=== PATIENT | female | born 1940 | race Caucasian/White ===

== ENCOUNTER → 2021-09-05 14:06 | Outpatient (CLI) | payer MEDICARE, SELFPAY | PROVIDERS: PCP Family Medicine; Referring Provider Dermatology MOHS-Micrographic Surgery; Visit Provider Nurse Practitioner Family | DX: T81.31XA Disruption of external operation (surgical) wound, not elsewhere classified, initial encounter (principal); S81.802A Unspecified open wound, left lower leg, initial encounter; I87.2 Venous insufficiency (chronic) (peripheral); L97.321 Non-pressure chronic ulcer of left ankle limited to breakdown of skin; R60.0 Localized edema; Z79.52 Long term (current) use of systemic steroids; Z85.828 Personal history of other malignant neoplasm of skin | CPT/HCPCS: 11042; 99203; 99213 ==

== ENCOUNTER → 2021-09-12 14:52 | Outpatient (CLI) | payer MEDICARE, SELFPAY | PROVIDERS: PCP Family Medicine; Referring Provider Dermatology MOHS-Micrographic Surgery; Visit Provider Nurse Practitioner Family | DX: T81.31XA Disruption of external operation (surgical) wound, not elsewhere classified, initial encounter (principal); S81.802A Unspecified open wound, left lower leg, initial encounter; I87.2 Venous insufficiency (chronic) (peripheral); L97.321 Non-pressure chronic ulcer of left ankle limited to breakdown of skin; R60.0 Localized edema; E27.40 Unspecified adrenocortical insufficiency; J45.909 Unspecified asthma, uncomplicated; Z79.52 Long term (current) use of systemic steroids | CPT/HCPCS: 11042; 97597 ==

== ENCOUNTER → 2021-09-19 13:18 | Outpatient (CLI) | payer MEDICARE, SELFPAY | PROVIDERS: PCP Family Medicine; Referring Provider Dermatology MOHS-Micrographic Surgery; Visit Provider Nurse Practitioner Family | DX: T81.31XA Disruption of external operation (surgical) wound, not elsewhere classified, initial encounter (principal); S81.802A Unspecified open wound, left lower leg, initial encounter; I87.2 Venous insufficiency (chronic) (peripheral); L97.321 Non-pressure chronic ulcer of left ankle limited to breakdown of skin; R60.0 Localized edema; E27.40 Unspecified adrenocortical insufficiency; J45.909 Unspecified asthma, uncomplicated; Z79.52 Long term (current) use of systemic steroids; Z85.828 Personal history of other malignant neoplasm of skin | CPT/HCPCS: 11042; 93922; 97597 ==

== ENCOUNTER → 2021-09-26 14:10 | Outpatient (CLI) | payer MEDICARE, SELFPAY | PROVIDERS: PCP Family Medicine; Referring Provider Dermatology MOHS-Micrographic Surgery; Visit Provider Nurse Practitioner Family | DX: T81.31XA Disruption of external operation (surgical) wound, not elsewhere classified, initial encounter (principal); S81.802A Unspecified open wound, left lower leg, initial encounter; I87.2 Venous insufficiency (chronic) (peripheral); L97.322 Non-pressure chronic ulcer of left ankle with fat layer exposed; R60.0 Localized edema; E27.40 Unspecified adrenocortical insufficiency; J45.909 Unspecified asthma, uncomplicated; Z79.52 Long term (current) use of systemic steroids; Z85.828 Personal history of other malignant neoplasm of skin | CPT/HCPCS: 97597 ==

== ENCOUNTER → 2021-10-03 13:43 | Outpatient (CLI) | payer MEDICARE, SELFPAY | PROVIDERS: PCP Family Medicine; Referring Provider Dermatology MOHS-Micrographic Surgery; Visit Provider Nurse Practitioner Family | DX: S81.802A Unspecified open wound, left lower leg, initial encounter (principal); T81.31XA Disruption of external operation (surgical) wound, not elsewhere classified, initial encounter; I87.2 Venous insufficiency (chronic) (peripheral); L97.322 Non-pressure chronic ulcer of left ankle with fat layer exposed; R60.0 Localized edema; E27.40 Unspecified adrenocortical insufficiency; J45.909 Unspecified asthma, uncomplicated; Z79.52 Long term (current) use of systemic steroids; Z85.828 Personal history of other malignant neoplasm of skin | CPT/HCPCS: 11042; 73590; 99213 ==

== ENCOUNTER → 2021-10-03 13:57 | Outpatient (CLI) | payer MEDICARE, SELFPAY ==
--- NOTE | 2021-10-03 | DI.RAD.S_ITS ---
PROCEDURE: XR TIBIA FIBULA LT 2V INDICATIONS: Unspecified open wound, left lower leg, initial encounter TECHNIQUE: 2 views of the tibia and fibula were acquired. COMPARISON: None. FINDINGS: Bones: No fractures or dislocations. No suspicious bony lesions. No erosive changes. Soft tissues: No suspicious soft tissue calcifications or masses. IMPRESSION: Although no bony erosions are identified, plain film radiography is relatively insensitive in the acute phases of osteomyelitis and may not demonstrate radiographic changes for 15 days. If acute osteomyelitis is of clinical concern, nuclear medicine regional bone scan or MRI is recommended. Dictated by: Quinten King [facility] Interpreted: Flavio Monsivais MD on 10/03/2021 at 14:23 Transcribed by: MARGIE on 10/03/2021 at 14:23 Approved by: Flavio Monsivais M.D. on 10/03/2021 at 16:31
== END ==
PROVIDERS: PCP Family Medicine; Referring Provider Nurse Practitioner Family; Visit Provider Nurse Practitioner Family
DX: S81.802A Unspecified open wound, left lower leg, initial encounter (principal)
CPT/HCPCS: 73590

== ENCOUNTER → 2021-10-10 11:55 | Outpatient (CLI) | payer MEDICARE, SELFPAY | PROVIDERS: PCP Family Medicine; Referring Provider Dermatology MOHS-Micrographic Surgery; Visit Provider Nurse Practitioner Family | DX: L08.9 Local infection of the skin and subcutaneous tissue, unspecified (principal); T81.31XA Disruption of external operation (surgical) wound, not elsewhere classified, initial encounter; S81.802A Unspecified open wound, left lower leg, initial encounter; R60.0 Localized edema; I87.2 Venous insufficiency (chronic) (peripheral); E27.40 Unspecified adrenocortical insufficiency; J45.909 Unspecified asthma, uncomplicated; Z79.52 Long term (current) use of systemic steroids; Z85.828 Personal history of other malignant neoplasm of skin | CPT/HCPCS: 15271; 36415; 85007; 85025; 85651; 86140; 87070; 87075; 87205; 99213; Q4195 ==

== ENCOUNTER → 2021-10-10 11:55 | Outpatient (CLI) | payer MEDICARE, SELFPAY ==
[2021-10-10 12:32] LABS: Hematocrit 44.5 % (36-46); Hemoglobin 14.8 g/dL (12.0-16.0); Mean Corpuscular HGB Conc 33.3 % (30-36); Mean Corpuscular Hemoglobin 29.2 PG (26-34); Mean Corpuscular Volume 87.8 fL (80-100); Platelet Count 506 X10^3/uL (150-400); Red Blood Cell Count 5.06 X10^6/uL (4.0-5.2); Red Cell Distribution Width 14.5 % (11.6-14.8); White Blood Cell Count 18.5 X10^3/uL (4.5-11.0)
[2021-10-10 12:35] LABS: Add Manual Diff / Slide Review YES
[2021-10-10 12:58] LABS: Neutrophils Absolute Manual 14615 /uL (3000-5900); Total Cells Counted 100
[2021-10-10 12:59] LABS: RBC Morphology Normal Morphology
[2021-10-10 13:12] LABS: C-Reactive Protein Quant < 0.5 mg/dL (<1.0); Erythrocyte Sedimentation Rate 1 MM/HR (0-20)
== END ==
PROVIDERS: PCP Family Medicine; Referring Provider Nurse Practitioner Family; Visit Provider Nurse Practitioner Family
DX: L08.9 Local infection of the skin and subcutaneous tissue, unspecified (principal)
CPT/HCPCS: 36415; 85007; 85025; 85651; 86140

== ENCOUNTER → 2021-10-17 11:21 | Outpatient (CLI) | payer MEDICARE, SELFPAY | PROVIDERS: PCP Family Medicine; Referring Provider Family Medicine; Visit Provider Nurse Practitioner Family | DX: T81.31XA Disruption of external operation (surgical) wound, not elsewhere classified, initial encounter (principal); S81.802A Unspecified open wound, left lower leg, initial encounter; I87.2 Venous insufficiency (chronic) (peripheral); R60.0 Localized edema; L08.9 Local infection of the skin and subcutaneous tissue, unspecified; E27.40 Unspecified adrenocortical insufficiency; J45.909 Unspecified asthma, uncomplicated; Z79.52 Long term (current) use of systemic steroids; Z85.828 Personal history of other malignant neoplasm of skin | CPT/HCPCS: 15271; 99214; Q4195 ==

== ENCOUNTER → 2021-10-24 09:28 | Outpatient (CLI) | payer MEDICARE, SELFPAY | PROVIDERS: PCP Family Medicine; Referring Provider Dermatology MOHS-Micrographic Surgery; Visit Provider Nurse Practitioner Family | DX: T81.89XA Other complications of procedures, not elsewhere classified, initial encounter (principal); S81.802A Unspecified open wound, left lower leg, initial encounter; R60.0 Localized edema | CPT/HCPCS: 99212 ==

== ENCOUNTER → 2021-10-31 13:53 | Outpatient (CLI) | payer MEDICARE, SELFPAY | PROVIDERS: PCP Family Medicine; Referring Provider Dermatology MOHS-Micrographic Surgery; Visit Provider Family Medicine | DX: Z79.52 Long term (current) use of systemic steroids (principal); I87.2 Venous insufficiency (chronic) (peripheral); E27.40 Unspecified adrenocortical insufficiency; D72.829 Elevated white blood cell count, unspecified; T81.89XA Other complications of procedures, not elsewhere classified, initial encounter; S81.802A Unspecified open wound, left lower leg, initial encounter; Z85.828 Personal history of other malignant neoplasm of skin | CPT/HCPCS: 15271; 99212; Q4196 ==

== ENCOUNTER → 2021-11-07 11:20 | Outpatient (CLI) | payer MEDICARE, SELFPAY | PROVIDERS: PCP Family Medicine; Referring Provider Dermatology MOHS-Micrographic Surgery; Visit Provider Nurse Practitioner Family | DX: T81.89XA Other complications of procedures, not elsewhere classified, initial encounter (principal); S81.802A Unspecified open wound, left lower leg, initial encounter; I87.2 Venous insufficiency (chronic) (peripheral); R60.0 Localized edema; E27.40 Unspecified adrenocortical insufficiency; D72.829 Elevated white blood cell count, unspecified; J45.909 Unspecified asthma, uncomplicated; Z79.52 Long term (current) use of systemic steroids; Z85.828 Personal history of other malignant neoplasm of skin | CPT/HCPCS: 15271; 99212; 99213; Q4196 ==

== ENCOUNTER → 2021-11-21 13:38 | Outpatient (CLI) | payer MEDICARE, SELFPAY | PROVIDERS: PCP Family Medicine; Referring Provider Family Medicine; Visit Provider Nurse Practitioner Family | DX: T81.89XA Other complications of procedures, not elsewhere classified, initial encounter (principal); S81.802A Unspecified open wound, left lower leg, initial encounter; R60.0 Localized edema; I87.2 Venous insufficiency (chronic) (peripheral); J45.909 Unspecified asthma, uncomplicated; E27.40 Unspecified adrenocortical insufficiency; D72.829 Elevated white blood cell count, unspecified; Z79.52 Long term (current) use of systemic steroids; Z85.828 Personal history of other malignant neoplasm of skin | CPT/HCPCS: 15271; Q4196 ==

== ENCOUNTER → 2021-12-12 13:30 | Outpatient (CLI) | payer MEDICARE, SELFPAY | PROVIDERS: PCP Family Medicine; Referring Provider Family Medicine; Visit Provider Nurse Practitioner Family | DX: T81.89XA Other complications of procedures, not elsewhere classified, initial encounter (principal); S81.802A Unspecified open wound, left lower leg, initial encounter; R60.0 Localized edema; I87.2 Venous insufficiency (chronic) (peripheral); E27.40 Unspecified adrenocortical insufficiency; D72.829 Elevated white blood cell count, unspecified; J45.909 Unspecified asthma, uncomplicated; Z79.52 Long term (current) use of systemic steroids; Z85.828 Personal history of other malignant neoplasm of skin | CPT/HCPCS: 15271; 99213; Q4196 ==

== ENCOUNTER → 2021-12-26 15:38 | Outpatient (CLI) | payer MEDICARE, SELFPAY | PROVIDERS: PCP Family Medicine; Referring Provider Family Medicine; Visit Provider Nurse Practitioner Family | DX: T81.89XA Other complications of procedures, not elsewhere classified, initial encounter (principal); S81.802A Unspecified open wound, left lower leg, initial encounter; R60.0 Localized edema; I87.2 Venous insufficiency (chronic) (peripheral); E27.40 Unspecified adrenocortical insufficiency; D72.829 Elevated white blood cell count, unspecified; Z79.52 Long term (current) use of systemic steroids; Z85.828 Personal history of other malignant neoplasm of skin | CPT/HCPCS: 15271; 99213; Q4196 ==

== ENCOUNTER → 2022-01-09 14:18 | Outpatient (CLI) | payer MEDICARE, SELFPAY | PROVIDERS: PCP Family Medicine; Referring Provider Family Medicine; Visit Provider Nurse Practitioner Family | DX: T81.89XA Other complications of procedures, not elsewhere classified, initial encounter (principal); S81.802A Unspecified open wound, left lower leg, initial encounter; R60.0 Localized edema; I87.2 Venous insufficiency (chronic) (peripheral); E27.40 Unspecified adrenocortical insufficiency; J45.909 Unspecified asthma, uncomplicated; Z79.52 Long term (current) use of systemic steroids; Z85.828 Personal history of other malignant neoplasm of skin | CPT/HCPCS: 11044; 99212 ==

== ENCOUNTER → 2022-01-16 14:04 | Outpatient (CLI) | payer MEDICARE, SELFPAY | PROVIDERS: PCP Family Medicine; Referring Provider Dermatology MOHS-Micrographic Surgery; Visit Provider Family Medicine | DX: T81.89XA Other complications of procedures, not elsewhere classified, initial encounter (principal); S81.802A Unspecified open wound, left lower leg, initial encounter; R60.0 Localized edema; I87.2 Venous insufficiency (chronic) (peripheral); E27.40 Unspecified adrenocortical insufficiency; J45.909 Unspecified asthma, uncomplicated; Z79.52 Long term (current) use of systemic steroids; Z85.828 Personal history of other malignant neoplasm of skin | CPT/HCPCS: 97597 ==

== ENCOUNTER → 2022-02-06 13:48 | Outpatient (CLI) | payer MEDICARE, SELFPAY | PROVIDERS: PCP Family Medicine; Referring Provider Dermatology MOHS-Micrographic Surgery; Visit Provider Nurse Practitioner Family | DX: T81.89XA Other complications of procedures, not elsewhere classified, initial encounter (principal); S81.802A Unspecified open wound, left lower leg, initial encounter; R60.0 Localized edema; I87.2 Venous insufficiency (chronic) (peripheral); E27.40 Unspecified adrenocortical insufficiency; Z79.52 Long term (current) use of systemic steroids; Z85.828 Personal history of other malignant neoplasm of skin | CPT/HCPCS: 11042; 73590; 99212 ==

== ENCOUNTER → 2022-02-06 14:52 | Outpatient (CLI) | payer MEDICARE, SELFPAY ==
--- NOTE | 2022-02-06 | DI.RAD.S_ITS ---
PROCEDURE: XR TIBIA FIBULA LT 2V INDICATIONS: Unspecified open wound, left lower leg, initial encounter TECHNIQUE: 2 views of the tibia and fibula were acquired. COMPARISON: [facility], CR, XR TIBIA FIBULA LT 2V, 10/03/2021, 13:56. FINDINGS: Bones: No fractures or dislocations. No suspicious bony lesions. Soft tissues: No suspicious soft tissue calcifications or masses. IMPRESSION: Although no bony erosions are identified, plain film radiography is relatively insensitive in the acute phases of osteomyelitis and may not demonstrate radiographic changes for 15 days. If acute osteomyelitis is of clinical concern, nuclear medicine regional bone scan or MRI is recommended. Dictated by: Quinten PALACIO Interpreted: Diane Mir MD on 02/06/2022 at 15:22 Transcribed by: HARVINDER on 02/06/2022 at 15:23 Approved by: Diane Mir M.D. on 02/06/2022 at 17:28
== END ==
PROVIDERS: PCP Family Medicine; Referring Provider Nurse Practitioner Family; Visit Provider Nurse Practitioner Family
DX: S81.802A Unspecified open wound, left lower leg, initial encounter (principal); X58.XXXA Exposure to other specified factors, initial encounter
CPT/HCPCS: 73590

== ENCOUNTER → 2022-02-20 13:03 | Outpatient (CLI) | payer MEDICARE, SELFPAY | PROVIDERS: PCP Family Medicine; Referring Provider Dermatology MOHS-Micrographic Surgery; Visit Provider Nurse Practitioner Family | DX: S81.802A Unspecified open wound, left lower leg, initial encounter (principal); I87.2 Venous insufficiency (chronic) (peripheral); R60.0 Localized edema; E27.40 Unspecified adrenocortical insufficiency; Z79.52 Long term (current) use of systemic steroids | CPT/HCPCS: 97597 ==

== ENCOUNTER → 2022-03-13 13:25 | Outpatient (CLI) | payer MEDICARE, SELFPAY | PROVIDERS: PCP Family Medicine; Referring Provider Dermatology MOHS-Micrographic Surgery; Visit Provider Nurse Practitioner Family | DX: T14.8XXD Other injury of unspecified body region, subsequent encounter (principal); S81.802A Unspecified open wound, left lower leg, initial encounter; I87.2 Venous insufficiency (chronic) (peripheral); E27.40 Unspecified adrenocortical insufficiency; Z79.52 Long term (current) use of systemic steroids | CPT/HCPCS: 11104; 15271; 36415; 80048; 99213; Q4195 ==

== ENCOUNTER → 2022-03-13 14:11 | Outpatient (CLI) | payer MEDICARE, SELFPAY ==
[2022-03-13 14:45] LABS: Blood Urea Nitrogen 15 mg/dL (7-17); Calcium 9.5 mg/dL (8.4-10.2); Carbon Dioxide 25 mmol/L (22-32); Chloride 99 mmol/L (98-107); Estimated Glomerular Filt Rate > 60 mL/min (>60); Glucose 141 mg/dL (80-110); HEMOLYSIS < 15 (0-50); Potassium 4.1 mmol/L (3.4-5.1); Sodium 135 mmol/L (137-145)
== END ==
PROVIDERS: PCP Family Medicine; Referring Provider Nurse Practitioner Family; Visit Provider Nurse Practitioner Family
DX: T14.8XXD Other injury of unspecified body region, subsequent encounter (principal)
CPT/HCPCS: 36415; 80048

== ENCOUNTER → 2022-03-14 09:28 | Outpatient (CLI) | payer MEDICARE, SELFPAY ==
--- NOTE | 2022-03-14 09:30 | DI.MRI.S_ITS ---
PROCEDURE: MR LOWER LEG LT WO/W CON INDICATIONS: Non-healing MOHS procedure TECHNIQUE: Noncontrast coronal T1 spin echo and STIR, sagittal T1 spin echo with fat saturation and STIR, axial T1 spin echo and T2 fast spin echo with fat saturation. After the administration of contrast, axial/sagittal/coronal T1 spin echo with fat saturation through the lower leg. COMPARISON: None. FINDINGS: Image quality: Excellent. Bones: The visualized bone marrow demonstrates normal signal on all sequences. The overlying cortex appears intact. No abnormal intraosseous enhancement. Soft tissues: Mild skin thickening and subcutaneous edema are seen at the anterior aspect of the lower leg at the level of the mid pickett, which likely corresponds with the reported surgical site. The edema extends to the depth of the bone without cortical destruction or osseous edema is seen. The adjacent anterior compartment musculature is normal in signal intensity. No intermuscular fascial edema is seen. There is a small medial popliteal cyst that is incompletely imaged. IMPRESSION: Subcutaneous edema and skin thickening are seen at the anterior aspect of the lower leg at the mid pickett level, which likely corresponds with the reported wound. Adjacent tibia is intact without MR evidence of osteomyelitis. No drainable fluid collection or signs of fasciitis. Dictated by: Mike Dacosta M.D. on 03/17/2022 at 9:52 Approved by: Mike Dacosta M.D. on 03/17/2022 at 10:06
== END ==
PROVIDERS: PCP Family Medicine; Referring Provider Nurse Practitioner Family; Visit Provider Nurse Practitioner Family
DX: T81.89XA Other complications of procedures, not elsewhere classified, initial encounter (principal); S81.802A Unspecified open wound, left lower leg, initial encounter
CPT/HCPCS: 73720; A9579

== ENCOUNTER → 2022-03-27 14:15 | Outpatient (CLI) | payer MEDICARE, SELFPAY | PROVIDERS: PCP Family Medicine; Referring Provider Dermatology MOHS-Micrographic Surgery; Visit Provider Nurse Practitioner Family | DX: S81.802A Unspecified open wound, left lower leg, initial encounter (principal); C44.729 Squamous cell carcinoma of skin of left lower limb, including hip | CPT/HCPCS: 99213 ==

== ENCOUNTER → 2022-06-15 12:47 | Outpatient (CLI) | payer MEDICARE, SELFPAY ==
--- NOTE | 2022-06-15 12:49 | DI.US.S_ITS ---
PROCEDURE: US PERIPH VENOUS LOW EXTREM BI INDICATIONS: EDEMA TECHNIQUE: Real-time imaging, as well as color and pulse Doppler interrogation, were performed of the deep veins of both legs from the inguinal ligament to the popliteal fossa. COMPARISON: None. FINDINGS: Right: The common femoral, femoral and popliteal veins are normally compressible, and free of intraluminal thrombus. Color and pulse Doppler demonstrate normal phasic intravascular flow. There is normal augmentation response to distal compression maneuver. Left: The common femoral, femoral and popliteal veins are normally compressible, and free of intraluminal thrombus. Color and pulse Doppler demonstrate normal phasic intravascular flow. There is normal augmentation response to distal compression maneuver. IMPRESSION: No sonographic evidence of DVT. Dictated by: Harrison Morfin M.D. on 06/15/2022 at 13:36 Approved by: Harrison Morfin M.D. on 06/15/2022 at 13:36
== END ==
PROVIDERS: PCP Nurse Practitioner; Referring Provider Nurse Practitioner; Visit Provider Nurse Practitioner
DX: M79.89 Other specified soft tissue disorders (principal)
CPT/HCPCS: 93970

== ENCOUNTER → 2022-06-26 08:08 | Outpatient (CLI) | payer MEDICARE, SELFPAY ==
--- NOTE | 2022-06-26 08:12 | DI.CT.S_ITS ---
PROCEDURE: CT CHEST ABD PEL W CON INDICATIONS: ventral hernia and respiratory insufficiency TECHNIQUE: After the administration of oral and intravenous contrast, axial sections acquired from the supraclavicular neck to the pubic symphysis. Coronal and sagittal reformats were performed. For radiation dose reduction, the following was used: automated exposure control, adjustment of mA and/or kV according to patient size. COMPARISON: [facility], CT, ABD/PELVIS W/CON (PNL), 07/05/2013, 14:08. FINDINGS: Image quality: Excellent. CHEST: Lower Neck: No enlarged lymph nodes. Thyroid: Within normal limits. Axillae: No enlarged lymph nodes. Chest Wall: Pectus excavatum deformity. Silicone breast implants are present bilaterally. There is capsular calcification nearly surrounding the right and partially surrounding the left. Both appear ruptured with extruded silicone extending both lateral and medial, left more extensive than right. Lungs and Airways: Mild upper lobe predominant emphysematous change. Central and peripheral airways are normal. No suspicious nodules or masses. Minor scarring at the right middle lobe and lingula. Pleura: No pneumothorax or pleural effusions. Heart: The heart size is slightly enlarged, likely accentuated by pectus excavatum deformity. No pericardial effusion. Mild coronary artery calcification. Thoracic Vessels: The aorta and pulmonary arteries demonstrate normal size. Moderate thoracic aortic calcification. Mediastinum and Yelitza: No enlarged lymph nodes. Esophagus: No wall thickening. No hiatal hernia. ABDOMEN: Liver: Occasional tiny hypodensities too small to characterize. Gallbladder: Abnormal enhancing nodule measuring about 8 mm at the gallbladder fundus. Gallbladder wall is normal thickness. No pericholecystic inflammation. Biliary ducts: Nondilated. Pancreas: Normal. Spleen: Normal. Adrenal Glands: No nodules. Kidneys and Ureters: Symmetric enhancement. No nephrolithiasis or hydronephrosis. No hydroureter. Stomach and Bowel: Stomach and small bowel loops are within normal limits. There is extensive diverticulosis in the descending and sigmoid colon. No acute inflammatory change. Peritoneum: No abnormal intraperitoneal fluid. No free air. Ventral Wall: There is a complex midline ventral hernia with probably at least two or three discrete fascial defects, the largest containing herniated fat and small vessels. Tiny fascial defects extend caudally to the level of the umbilicus. The largest fascial defect measures 2.8 cm. The entire affected area measures about 10.5 x 6.8 cm. No herniated bowel or fluid in the hernia sacs. Abdominal Nodes: No retroperitoneal or mesenteric adenopathy by size criteria. Vessels: Aorta and inferior vena cava are normal in size. Heavy abdominal aortic atherosclerotic calcification. PELVIS: Pelvic Organs: The uterus is absent. Ovarian tissue is not seen. Bladder: Normal wall thickness. Pelvic Nodes: No enlarged lymph nodes. Miscellaneous: No inguinal hernias are seen. Bones: No suspicious bone lesions. Trace anterolisthesis L3 on four. IMPRESSION: 1. Complex ventral abdominal wall hernias as described. 2. Mild pulmonary emphysematous change and pectus excavatum deformity. 3. Abnormal hyperdense nodule in the gallbladder fundus. Consider right upper quadrant ultrasound for further evaluation. 4. Extensive colonic diverticulosis, particularly in the sigmoid. Dictated by: Isatu Rocha M.D. on 06/26/2022 at 15:39 Approved by: Isatu Rocha M.D. on 06/26/2022 at 15:54
[2022-06-26 10:07] LABS: Add Manual Diff / Slide Review NO; Basophils Absolute Auto 100 /uL (0-100); Basophils Percent Auto 0.6 % (0-2); Eosinophils Absolute Auto 0 /uL (0-450); Eosinophils Percent Auto 0.1 % (2-4); Hematocrit 43.1 % (36-46); Hemoglobin 14.4 g/dL (12.0-16.0); Lymphocytes Absolute Auto 2800 /uL (1100-4500); Lymphocytes Percent Auto 19.4 % (25-40); Mean Corpuscular HGB Conc 33.3 % (30-36); Mean Corpuscular Hemoglobin 29.2 PG (26-34); Mean Corpuscular Volume 87.7 fL (80-100); Monocytes Absolute Auto 600 /uL (0-900); Monocytes Percent Auto 4.4 % (3-14); Neutrophils Absolute Auto 11000 /uL (1500-7000); Neutrophils Percent Auto 75.5 % (50-75); Platelet Count 601 X10^3/uL (150-400); Red Blood Cell Count 4.92 X10^6/uL (4.0-5.2); White Blood Cell Count 14.6 X10^3/uL (4.5-11.0)
[2022-06-26 10:42] LABS: Alanine Aminotransferase 16 IU/L (<35); Albumin 4.3 g/dL (3.5-5.0); Albumin Globulin Ratio 1.5 (1.0-2.8); Alkaline Phosphatase 78 U/L (38-126); Aspartate Aminotransferase 18 IU/L (14-36); BUN Creatinine Ratio 22.4 (6-22); Bilirubin Total 0.6 mg/dL (0.2-1.3); Blood Urea Nitrogen 17 mg/dL (7-17); Calcium 9.6 mg/dL (8.4-10.2); Carbon Dioxide 29 mmol/L (22-32); Chloride 95 mmol/L (98-107); Estimated Glomerular Filt Rate > 60 mL/min (>60); Globulin 2.9 g/dL (1.7-4.1); Glucose 113 mg/dL (80-110); HEMOLYSIS < 15 (0-50); Potassium 3.9 mmol/L (3.4-5.1); Sodium 134 mmol/L (137-145); Total Protein 7.2 g/dL (6.3-8.2)
== END ==
PROVIDERS: PCP Nurse Practitioner; Referring Provider Surgery; Visit Provider Surgery
DX: K43.2 Incisional hernia without obstruction or gangrene (principal); K57.30 Diverticulosis of large intestine without perforation or abscess without bleeding; M95.4 Acquired deformity of chest and rib; K82.9 Disease of gallbladder, unspecified
CPT/HCPCS: 36415; 71260; 74177; 80053; 85025; Q9967

== ENCOUNTER → 2022-07-31 16:28 | Outpatient (CLI) | payer MEDICARE, SELFPAY ==
--- NOTE | 2022-07-31 16:30 | DI.US.S_ITS ---
PROCEDURE: US ABDOMEN LIMITED INDICATIONS: GALLBLADDER AND LIVER HYPODENSITY ON CT TECHNIQUE: Real-time focused scanning was performed of the abdomen, with image documentation. COMPARISON: [facility], CT, CT CHEST ABD PEL W CON, 06/26/2022, 10:24. FINDINGS: Simple cyst in the left hepatic lobe measuring 5 millimeters. Hyperechoic lesion in the right hepatic lobe measuring 8 millimeters is nonspecific but likely represents hemangioma. Tumefactive sludge versus gallstone in the gallbladder fundus. Also the gallbladder fundus is soft tissue echogenicity which is partially exophytic extending through the free edge of the gallbladder wall at the fundus, corresponding in location to focus of enhancement seen on 06/26/2022 CT in this location of the gallbladder. Otherwise no gallbladder wall thickening. No pericholecystic fluid. The valve seater operator reports and negative sonographic Resendiz's sign. Pancreas is grossly normal where visualized. No intrahepatic or extrahepatic biliary ductal dilatation. IMPRESSION: Infiltrative gallbladder wall mass at the fundus, previously seen to enhance. This is suspicious for neoplasm. No findings of cholecystitis or other acute abnormality. Consider surgical consultation. Dictated by: Harrison Morfin M.D. on 07/31/2022 at 17:39 Approved by: Harrison Morfin M.D. on 07/31/2022 at 17:41
== END ==
PROVIDERS: PCP Nurse Practitioner; Referring Provider Surgery; Visit Provider Surgery
DX: K82.8 Other specified diseases of gallbladder (principal)
CPT/HCPCS: 76705

== ENCOUNTER 2022-11-03 10:46 | Day surgery (SDC) | payer MEDICARE, SELFPAY ==
[2022-10-30 15:21] VITALS: BMI 18.8
[2022-11-03] VITALS (11 sets, daily range): BP systolic 125–158; BP diastolic 64–85; PULSE 75–96; RESP 16–18; TEMP 36.1–36.9; O2SAT 92–99; BMI 18.8
[2022-11-03] MEDS: LACTATED RINGERS 1,000 ML 42 ML IV ×2 (11:30→13:08)
--- NOTE | 2022-11-03 11:32 | PM.HP.1 ---
History of Present Illness History of Present Illness Date Patient Seen: 11/03/22 Time Patient Seen: 11:32 Chief complaint: Open Ventral Incisional Hernia w/mesh Narrative: Minna is an 82-year-old woman who has an upper midline ventral incisional hernia with multiple defects. She would like to have it repaired. [facility] Medical History (Updated 10/30/22 @ 15:22 by Kenya Dumont RN) Adrenal disorder (~2005) Anxiety Asthma Cataracts, bilateral (~2018) Chicken pox COPD (chronic obstructive pulmonary disease) (~2005) Depression Easy bruisability GERD (gastroesophageal reflux disease) Hearing loss HTN (hypertension) Hx of skin cancer, basal cell (~2014) Measles Mumps Ulcer Vertigo (~2011) Vision disorder Surgical History (Updated 10/30/22 @ 15:23 by Kenya Dumont RN) Anesthesia History of surgery Perforated ulcer (~2005) Family History Father History of heart disease Mother History of heart disease Brother Cancer History of heart disease Sister History of heart disease Family/Other Allergies Social History household members: none Smoking Status: Former smoker alcohol intake: current Meds Home Medications and Allergies Home Medications Medication Instructions Recorded Confirmed Type albuterol sulfate 2.5 mg/3 mL 2.5 mg inhalation Q4-6H 04/08/22 11/03/22 History (0.083 %) solution for nebulization cholecalciferol (vitamin D3) 50 50 mcg PO DAILY 04/08/22 11/03/22 History mcg (2,000 unit) capsule diphenhydramine HCl 25 mg tablet 50 mg PO ONCE #2 tabs 06/24/22 11/03/22 Rx (Benadryl Allergy) diazepam 5 mg tablet 5 mg PO BID PRN anxiety #10 tabs 10/19/22 11/03/22 Rx esomeprazole magnesium 20 mg 20 mg PO DAILY #90 caps 10/19/22 11/03/22 Rx capsule,delayed release (Nexium) estradiol 0.5 mg tablet 0.5 mg PO DAILY #90 tabs 10/19/22 11/03/22 Rx prednisone 5 mg tablet 5 mg PO TID #3 tabs 10/19/22 10/19/22 Rx risedronate 5 mg tablet 5 mg PO DAILY #90 tabs 10/19/22 11/03/22 Rx budesonide-formoterol HFA 160 2 puff inhalation BID 10/30/22 11/03/22 History mcg-4.5 mcg/actuation aerosol inhaler (Symbicort) prednisone 5 mg tablet 10 mg PO DAILY 10/30/22 11/03/22 History hydrochlorothiazide 12.5 mg tablet 12.5 mg PO DAILY #90 tabs 11/02/22 11/03/22 Rx Allergies Allergy/AdvReac Type Severity Reaction Status Date / Time iodine Allergy ITCHING Verified 11/03/22 11:08 Exam Vital Signs (past 8 hours): - 11/03/22 11:13 Temperature 97.0 F L Pulse Rate 96 H Respiratory Rate 18 Blood Pressure 149/80 H Pulse Oximetry 96 Oxygen Delivery Method Room Air Oxygen Delivery Method Room Air Narrative Exam Narrative: Multiple reducible ventral incisional hernia the largest of which is about 2 cm Assessment & Plan Assessment and plan (1) Ventral incisional hernia: Status: Acute Plan We will plan for an open incisional hernia repair with mesh. She will stay overnight if she has any trouble with pain or breathing afterwards.
--- NOTE | 2022-11-03 11:39 | SUR.PREOP ---
Pt instructed on incentive spirometery. Able to achieve 750cc.
[2022-11-03] MEDS: CEFAZOLIN 2 GM/100 ML PREMIX 100 ML IV (12:06)
--- NOTE | 2022-11-03 12:26 | SUR.OPER ---
Supine on padded OR bed, head on pillow, arms secured on padded arm boards at <90 degrees abduction, legs uncrossed, safety belt at thigh, tape over blanket over lower legs.
[2022-11-03] MEDS: BUPIVACAINE 0.5% (PF) 30 ML, EPINEPHrine 0.15 MG INJ (12:36)
--- NOTE | 2022-11-03 12:57 | PM.OP.1 ---
Operative Date/Time/Diagnoses Date of procedure: 11/03/22 Time of procedure: 12:57 Pre-op diagnosis: Ventral incisional hernia Post-op diagnosis: same Procedure & Clinicians Procedure: Open ventral incisional hernia repair with mesh Same procedure as scheduled: Yes Surgeon: Filiberto York Ceramic Coater Machine: Yasmany Quinn Anesthesia Type: General Operative Notes Procedure in detail: Ancef was administered. The patient was brought to the operating room, placed on the table in the supine position and general endotracheal anesthesia was induced. The abdomen was prepped and draped in the usual fashion. A time-out was performed. A 7 cm incision was made along the midline scar. Dissection was carried down to the hernia sac. The hernia sac was freed from the fascial ring. After further dissection there were noted to be a proximally 4 separate defects which were all close in proximity. Individual bands of fascia were divided to create 1 large defect. The combined defect was about 6 cm x 4 cm. There was no bowel or omentum adherent to the sac. The fascia was then closed with multiple interrupted 0 Ethibond sutures. The subcutaneous adipose tissue was cleared off of the anterior sheath circumferentially about 2 cm in each direction. A piece of polypropylene mesh was trimmed to fit over the fascial closure and secured with Tisseel. Once the Tisseel was dried the subcutaneous adipose tissue was closed with interrupted 3-0 Vicryl sutures. The skin was closed with multiple interrupted 3-0 Vicryl dermal sutures followed by a running 4 Monocryl subcuticular closure. Steri-Strips were applied and an abdominal binder was applied. Post-operative Condition: stable Disposition: PACU
[2022-11-03] MEDS: ACETAMINOPHEN 325 MG TABLET PO (13:51)
[2022-11-03] MEDS: OXYCODONE IR 5 MG TABLET PO ×2 (13:51→15:09)
--- NOTE | 2022-11-03 14:09 | SUR.PHASEII ---
pulled off ekg lead on left side and pt's skin tore. RN had pulled gently but pt's skin is fragile. Placed a saline dressing on her skin. Pt states her skin is fragile.
--- NOTE | 2022-11-03 14:32 | SUR.PHASEI ---
pt states she is on prednisone and her skin is extremely fragile.
--- NOTE | 2022-11-03 15:10 | SUR.PHASEII ---
Dressing applied to skin tear and adhesive removers given to patient. On Prednisone for years, skin very fragile. DC instructions discussed. second copy to her son per pt request. Mild discomfort, requested 2nd pain pill, given. DC with son to home via WC, all belongings with patient. Voided and dressed self.
== END 2022-11-03 15:12 | disposition home or self-care (01) ==
PROVIDERS: PCP Nurse Practitioner; Referring Provider Surgery; Visit Provider Surgery
PROC: (CPT 49593; principal; 2022-11-03 12:15)
DX: K43.2 Incisional hernia without obstruction or gangrene (principal)
CPT/HCPCS: 49593; J0171; J0690; J1170; J2405; J2704; J3010

== ENCOUNTER → 2023-06-29 12:15 | Outpatient (CLI) | payer MEDICARE, SELFPAY ==
--- NOTE | 2023-06-29 12:21 | DI.CT.S_ITS ---
PROCEDURE: CT ABDOMEN PELVIS W CON INDICATIONS: 1 year f/up, surveilance TECHNIQUE: After the administration of intravenous contrast, axial sections acquired from the lung bases to the pubic symphysis. Coronal and sagittal reformats were performed. For radiation dose reduction, the following was used: automated exposure control, adjustment of mA and/or kV according to patient size. COMPARISON: [facility], CT, CT CHEST ABD PEL W CON, 06/26/2022, 10:24. FINDINGS: Lower thorax: Pectus excavatum and bilateral breast prosthesis with capsular calcification. Lung bases are clear. Liver: The liver is diffusely decreased in attenuation without focal mass lesion. Biliary system: No focal gallbladder wall nodule now measures 1.8 x 0.9 cm, previously 0.9 x 0.4 cm. Gallbladder wall measures additional irregularity, more pronounced than the prior. No evidence of calcified cholelithiasis. Pancreas: Unremarkable without mass or inflammation evident. Spleen: Normal in size and density. Adrenals: Normal morphology and density. Reproductive system: Unremarkable as visualized. Urinary system: Left renal scarring stable. No hydronephrosis or calculus bilaterally. Gastrointestinal system: The bowel is unremarkable without evidence of bowel obstruction or inflammation. The stomach appears unremarkable. Multiple diverticula arise from the sigmoid colon without evidence of diverticulitis. Appendix: No findings to suggest acute appendicitis. Peritoneal spaces: No mesenteric or retroperitoneal adenopathy. No free air. No free fluid. Vasculature: Aortic atherosclerotic vascular calcification noted without evidence of aneurysm. Abdominal wall: Ventral herniorrhaphy without evidence of recurrence or residual ventral hernia Musculoskeletal: Normal bone mineralization. Degenerative disc disease and arthropathy noted in lower lumbar spine. No acute fractures. Left sacral 5 mm osteoma stable. IMPRESSION: 1. Focal nodular mass lesion involving the gallbladder fundus has increased in size from the prior exam, suspicious for neoplasm. Consider surgical consult 2. Additional chronic findings as above Approved by: Naun Romero M.D. on 06/29/2023 at 17:37
[2023-06-29 12:44] LABS: Estimated Glomerular Filt Rate > 60 mL/min (>60)
== END ==
PROVIDERS: PCP Nurse Practitioner; Referring Provider Specialist; Visit Provider Specialist
DX: K82.8 Other specified diseases of gallbladder (principal); R93.5 Abnormal findings on diagnostic imaging of other abdominal regions, including retroperitoneum; M51.36 Other intervertebral disc degeneration, lumbar region; M47.816 Spondylosis without myelopathy or radiculopathy, lumbar region; K57.30 Diverticulosis of large intestine without perforation or abscess without bleeding
CPT/HCPCS: 36415; 74177; 82565

== ENCOUNTER → 2023-07-14 16:49 | Outpatient (CLI) | payer MEDICARE, SELFPAY ==
[2023-07-14 17:20] LABS: Add Manual Diff / Slide Review NO; Basophils Absolute Auto 300 /uL (0-100); Basophils Percent Auto 1.4 % (0-2); Eosinophils Absolute Auto 100 /uL (0-450); Eosinophils Percent Auto 0.6 % (2-4); Hematocrit 44.2 % (36-46); Hemoglobin 14.8 g/dL (12.0-16.0); Lymphocytes Absolute Auto 4300 /uL (1100-4500); Lymphocytes Percent Auto 23.1 % (25-40); Mean Corpuscular HGB Conc 33.5 % (30-36); Mean Corpuscular Hemoglobin 29.2 PG (26-34); Mean Corpuscular Volume 87.4 fL (80-100); Monocytes Absolute Auto 1200 /uL (0-900); Monocytes Percent Auto 6.6 % (3-14); Neutrophils Absolute Auto 12800 /uL (1500-7000); Neutrophils Percent Auto 68.3 % (50-75); Platelet Count 469 X10^3/uL (150-400); Red Blood Cell Count 5.06 X10^6/uL (4.0-5.2); Red Cell Distribution Width 14.7 % (11.6-14.8); White Blood Cell Count 18.7 X10^3/uL (4.5-11.0)
[2023-07-14 18:06] LABS: Alanine Aminotransferase 17 IU/L (<35); Albumin 4.2 g/dL (3.5-5.0); Albumin Globulin Ratio 1.5 (1.0-2.8); Alkaline Phosphatase 69 U/L (38-126); BUN Creatinine Ratio 18.4 (6-22); Bilirubin Total 0.9 mg/dL (0.2-1.3); Blood Urea Nitrogen 14 mg/dL (7-17); Calcium 10.3 mg/dL (8.4-10.2); Carbon Dioxide 27 mmol/L (22-32); Chloride 98 mmol/L (98-107); Estimated Glomerular Filt Rate > 60 mL/min (>60); Globulin 2.8 g/dL (1.7-4.1); Glucose 112 mg/dL (80-110); HEMOLYSIS < 15 (0-50); Lipase 117 U/L (23-300); Potassium 4.7 mmol/L (3.4-5.1); Sodium 134 mmol/L (137-145)
[2023-07-14 18:37] LABS: Cancer Antigen 125 18.5 U/mL (0-35); Carcinoembryonic Antigen 2.4 ng/mL (0.1-3.0)
[2023-07-15 07:38] LABS: Alpha Fetoprotein 5.2 ng/mL (0.0-8.7); Cancer (Carbohydrate) Ag 19-9 26 U/mL (0-35); Cancer Antigen 27.29 29.4 U/mL (0.0-38.6)
[2023-07-16 16:08] LABS: Aspartate Aminotransferase 23 IU/L (14-36)
== END ==
PROVIDERS: PCP Nurse Practitioner; Referring Provider Surgery; Visit Provider Surgery
DX: C22.1 Intrahepatic bile duct carcinoma (principal)
CPT/HCPCS: 36415; 80053; 82105; 82378; 83690; 85025; 86300; 86301; 86304; 99215

== ENCOUNTER → 2023-09-27 13:18 | Outpatient (CLI) | payer MEDICARE, SELFPAY ==
[2023-09-27 13:53] LABS: Hematocrit 43.3 % (36-46); Hemoglobin 14.3 g/dL (12.0-16.0); Mean Corpuscular Hemoglobin 28.9 PG (26-34); Mean Corpuscular Volume 87.5 fL (80-100); Platelet Count 483 X10^3/uL (150-400); Red Blood Cell Count 4.94 X10^6/uL (4.0-5.2); Red Cell Distribution Width 14.2 % (11.6-14.8); White Blood Cell Count 20.6 X10^3/uL (4.5-11.0)
[2023-09-27 14:05] LABS: Neutrophils Absolute Manual 16274 /uL (3000-5900); RBC Morphology Normal Morphology; Total Cells Counted 100
[2023-09-27 14:27] LABS: Alanine Aminotransferase 14 IU/L (<35); Albumin 3.6 g/dL (3.5-5.0); Albumin Globulin Ratio 1.4 (1.0-2.8); Alkaline Phosphatase 57 U/L (38-126); Aspartate Aminotransferase 23 IU/L (14-36); BUN Creatinine Ratio 24.1 (6-22); Bilirubin Total 0.9 mg/dL (0.2-1.3); Blood Urea Nitrogen 20 mg/dL (7-17); Calcium 9.4 mg/dL (8.4-10.2); Carbon Dioxide 24 mmol/L (22-32); Chloride 104 mmol/L (98-107); Estimated Glomerular Filt Rate > 60 mL/min (>60); Globulin 2.6 g/dL (1.7-4.1); Glucose 111 mg/dL (80-110); HEMOLYSIS < 15 (0-50); Potassium 4.2 mmol/L (3.4-5.1); Sodium 134 mmol/L (137-145); Total Protein 6.2 g/dL (6.3-8.2)
[2023-09-29 00:11] LABS: Cancer (Carbohydrate) Ag 19-9 70 U/mL (0-35)
== END ==
PROVIDERS: PCP Nurse Practitioner; Referring Provider Internal Medicine; Visit Provider Internal Medicine
DX: C23 Malignant neoplasm of gallbladder (principal)
CPT/HCPCS: 36415; 80053; 85025; 86301

== ENCOUNTER → 2023-11-08 13:48 | Outpatient (CLI) | payer MEDICARE, SELFPAY ==
--- NOTE | 2023-11-08 | DI.RAD.S_ITS ---
PROCEDURE: XR LUMBAR SPINE MIN 4V INDICATIONS: EXTR. PAIN TECHNIQUE: Five views of the lumbar spine COMPARISON: [facility], CT, CT ABDOMEN PELVIS W CON, 06/29/2023, 13:34. [facility], CR, XR LUMBAR SPINE 2 OR 3 VIEWS, 10/28/2023, 11:02. FINDINGS: Bones: Moderate degenerative changes. Unchanged 5 mm of anterolisthesis of L3 on L4 and L4 on L5. Vertebral body heights are well maintained. No traumatic subluxation. Oblique views limited by degenerative changes and bowel gas, no definite pars defects. Slight spinal curvature. Soft tissues: Pelvic calcifications may represent phleboliths. There are cholecystectomy clips. Moderate fecal loading. Partially seen hip arthrosis. IMPRESSION: Moderate spondylosis and multilevel spondylolisthesis. If there is high concern for further derangement, consider MRI evaluation. Dictated by: Moises Sherman M.D. on 11/08/2023 at 14:33 Approved by: Moises Sherman M.D. on 11/08/2023 at 14:36
== END ==
PROVIDERS: PCP Nurse Practitioner; Referring Provider Nurse Practitioner; Visit Provider Nurse Practitioner
DX: M47.816 Spondylosis without myelopathy or radiculopathy, lumbar region (principal); M43.16 Spondylolisthesis, lumbar region; M54.50 Low back pain, unspecified; M79.604 Pain in right leg
CPT/HCPCS: 72110

== ENCOUNTER → 2023-11-26 12:10 | Outpatient (CLI) | payer MEDICARE, SELFPAY ==
--- NOTE | 2023-11-26 12:14 | DI.RAD.S_ITS ---
PROCEDURE: XR HIP W PEL IF DONE GISEL MIN 4V INDICATIONS: recent falls x4, sacral and lower back pain TECHNIQUE: AP pelvis with lateral view(s) of the bilateral hip(s). COMPARISON: None. FINDINGS: Bones: Mild degenerative changes of the lower lumbar spine, incompletely evaluated. Joint space of bilateral hips are grossly well maintained. Small calcification about the right greater trochanter, representing hydroxyapatite deposition disease. No acute fracture or dislocation. IMPRESSION: Chronic changes. Dictated by: Zainab Long M.D. on 11/26/2023 at 17:03 Approved by: Zainab Long M.D. on 11/26/2023 at 17:06
== END ==
PROVIDERS: PCP Nurse Practitioner; Referring Provider Nurse Practitioner; Visit Provider Nurse Practitioner
DX: M11.051 Hydroxyapatite deposition disease, right hip (principal); M54.50 Low back pain, unspecified; M54.30 Sciatica, unspecified side; R29.6 Repeated falls
CPT/HCPCS: 73522

== ENCOUNTER 2024-01-05 08:30 | Outpatient (CLI) | payer MEDICARE, SELFPAY ==
[2024-01-05 09:20] VITALS: BP 179/78; PULSE 66; RESP 18; TEMP 36.5; O2SAT 96
--- NOTE | 2024-01-05 09:30 | DI.RAD.S_ITS ---
PROCEDURE: PAIN L/S TRANSFORAMINAL INJECT INDICATIONS: RADICULOPATHY COMPARISON: None. FINDINGS: Fluoroscopic spot filming was performed to verify placement of spinal needles at the right L4-5 level(s), as labeled on the films. Appropriate location(s) of the needle tip(s) was confirmed by injection of iodinated contrast. IMPRESSION: Fluoroscopic support for right L4-5 transforaminal epidural steroid injection Please see separate procedure note for further details. Dictated by: Clifford Fatima M.D. on 01/05/2024 at 12:17 Approved by: Clifford Fatima M.D. on 01/05/2024 at 12:17
[2024-01-05 09:43] VITALS: BP 171/74; PULSE 80; RESP 23; O2SAT 98
[2024-01-05 09:45] VITALS: BP 178/82; PULSE 85; RESP 17; O2SAT 98
[2024-01-05] MEDS: iopamidoL 15 ML VIAL 3 ML INJ (09:47)
[2024-01-05] MEDS: DEXAMETHASONE 10 MG/ML VIAL INJ (09:47)
[2024-01-05 09:50] VITALS: BP 160/72; PULSE 84; RESP 16; O2SAT 95
--- NOTE | 2024-01-05 10:09 | PC.NURSE ---
Patient denies any chest pain, SOB, HENDRICKS. Denies any scratchy or swelling throat. Patient and son instructed to continue to monitor.
--- NOTE | 2024-01-05 12:12 | P.PCN_ITS ---
Date/Time/Diagnoses Date of procedure: 01/05/24 Time of procedure: 09:30 Procedure Notes Physician: Adonis Haider Total Fluoroscopy time (seconds): 13 Total sedation minutes: 0 Procedure in detail & Post-procedure care: Right L4-5 Transforaminal Epidural Steroid Injection Indications: Minna is presenting for treatment of lumbar radiculopathy with low back and leg pain. Preoperative diagnosis: Lumbar radiculopathy Postoperative diagnosis: Same Focused Examination: Ax3 Mood and affect are normal Vital Signs: VSS Patient with history iodine allergy which caused itching. She was premedicated with prednisone and Benadryl. Consent: Following review of allergies and potential side effects/complications, including, but not necessarily limited to, infection, allergic reaction, local tissue breakdown, stroke, temporary or permanent nerve injury, paralysis, and possible , the patient indicated that they understood and agreed to proceed.? An informed consent document was signed by the patient, witnessed by a nurse and placed in the patient's chart.? Additionally, other treatment options including medications and physical therapy were reviewed with the patient. All questions were answered. Site was then marked. Anesthesia: Local Position: Prone Monitoring: NIBP, Pulse oximetry, 3 lead EKG Needle used: 22 gauge, 3.5 inch spinal needle Contrast: Isovue 300M Injectate: 10 mg Dexamethasone mixed with 1% lidocaine 1 ml and normal saline 1 mL Technique: The skin was prepped with chloraprep and draped in a sterile fashion. Time out was performed as per protocol. Oxygen applied via NC. Skin and subcutaneous structures of the needle entry site were infiltrated with 3mL of lidocaine 1%. Under fluoroscopic guidance, using an ipsilateral oblique view,?a 22 gauge 3.5 inch needle was advanced to the base of the right L4?pedicle.? The needle was advanced to the superio-posterior aspect of the neural foramen under lateral view.? Oblique and AP views were rechecked. No paresthesias noted by the patient during needle placement. In AP view and utilizing real-time digital subtraction fluoroscopy, 2 ml contrast was slowly injected. Epidural spread was observed without evidence for intravascular nor intrathecal uptake. Contrast spread was seen craniocaudally. The above injectate was then administered without paresthesias and the needle was subsequently withdrawn. Band-Aids applied to injection sites. EBL: less than 1 ml Complications: None Post Procedure: Patient was taken to the recovery and monitored. The patient was provided a Pain Log to continue to record the patient's response to the target- specific procedure prior to the patient's follow-up visit with the referring physician. Patient was stable upon discharge. Detailed post procedure instructions were provided. Patient was asked to call in the event of worsening pain, fever, weakness, numbness or bladder or bowel incontinence.
== END 2024-01-05 10:05 | disposition home or self-care (01) ==
PROVIDERS: PCP Nurse Practitioner; Referring Provider Anesthesiology; Visit Provider Anesthesiology
DX: M54.16 Radiculopathy, lumbar region (principal)
CPT/HCPCS: 64483; J1100